=== PATIENT | male | born 1950 | race Caucasian/White ===

== ENCOUNTER 2017-08-25 06:48 | Day surgery (SDC) | payer MEDICARE ==
[~2017-08-25 06:48] MED LIST: Buffered Lidocaine 0.9% SYRIN* 5 ML/SYR SYRINGE INTRADERM ONE
[2017-08-25] MEDS ORDERED: Buffered Lidocaine 0.9% SYRIN* 5 ML/SYR SYRINGE ONE (07:03)
[2017-08-25] MEDS ORDERED: Lidocaine 1% MPF wEPI 200,000* 30 ML SDV ONE (08:05)
[2017-08-25] MEDS ORDERED: Succinylcholine* 20 MG/ML 10 ML VIAL ONE (08:12)
[2017-08-25] MEDS ORDERED: Dexamethasone IV* 4 MG/ML 1 ML (4 MG) ONE (08:12)
[2017-08-25] MEDS ORDERED: Lidocaine 2% PF * 5 ML VIAL ONE (08:12)
[2017-08-25] MEDS ORDERED: Propofol* 10 MG/ML 20 ML BTL IV PUSH ONE (08:12)
[2017-08-25] MEDS ORDERED: fentaNYL* 50 MCG/ML 2 ML VIAL (100 MCG VIAL) ONE ×2 (08:13→11:48)
[2017-08-25] MEDS ORDERED: Ondansetron INJ* 2 MG/ML VIAL IV PRN (10:06)
[2017-08-25] MEDS ORDERED: Ketorolac INJ* 30 MG/ML 1 ML VIAL IV PRN (10:06)
[2017-08-25] MEDS ORDERED: Bacitracin OINTMENT* 1 TUBE ONE (10:49)
[2017-08-25] MEDS ORDERED: Ketorolac INJ* 30 MG/ML 1 ML VIAL ONE (11:48)
[2017-08-25] MEDS ORDERED: Ondansetron INJ* 2 MG/ML VIAL ONE (11:52)
[2017-08-25] MEDS: fentaNYL* 50 MCG/ML 2 ML VIAL (100 MCG VIAL) IV PRN ×2 (11:55→12:25)
[2017-08-25] MEDS ORDERED: HYDROcodone/ACETAMIN 5-325 MG* 1 TAB ONE (12:21)
[2017-08-25 13:52] VITALS: BP 113/58
--- NOTE | 2017-08-26 01:06 | OP ---
OPERATIVE REPORT: DATE OF OPERATION: 08/25/17 - [facility] DATE OF : 48 SURGEON: Alvino Gaming MD FORENSIC ECONOMIST: Abrahan Snider MD ANESTHESIOLOGIST: Abelino Decker DO ANESTHESIA: General. PRE-OP DIAGNOSIS: Benign neoplasm, right parotid gland. POST-OP DIAGNOSIS: Benign neoplasm, right parotid gland. OPERATIVE PROCEDURE: Right superficial parotidectomy with facial nerve monitoring. ESTIMATED BLOOD LOSS: Approximately 40 cc. SPECIMENS: Right parotid mass to Pathology. INDICATIONS: This is a 67-year-old male who was referred for evaluation of right parotid mass. The mass appeared on imaging to be cystic. Fine needle aspiration demonstrated macrophages and proteinaceous debris without any obvious epithelial component, though no evidence of malignancy. Given the size of the mass, which is about 3 cm and associated discomfort, it was decided to proceed with right superficial parotidectomy, both for diagnostic and therapeutic purposes. DESCRIPTION OF PROCEDURE: On 08/25/17, the patient was brought to the operating room. General anesthesia was induced and an oral endotracheal tube was placed. The patient was positioned. A facial nerve monitor was applied and found to be in good working order. The intended infusion site was marked. A pre-prep verification was performed. 1% lidocaine with 1:200,00 epinephrine was infiltrated into the subcutaneous soft tissue at the intended incision site. The neck was then prepped with Betadine, draped sterilely and another time-out performed. A 15-blade was used to make an incision beginning in the preauricular crease extending inferiorly around the lobule and then down into the upper neck. A flap was raised anteriorly above the parotid fascia, but deep to the hair follicles, and skin was also raised posteriorly to expose the anterior portion of the sternocleidomastoid muscle. Dissection was then undertaken across the broad front running from the anterior edge of the external auditory canal cartilage inferiorly down towards the sternocleidomastoid muscle. The tympanomastoid suture line was used as a landmark to guide dissection down to an identification of the facial nerve. The main trunk was easily identified. This was then used as a landmark to guide further dissection. The mass itself was relatively superior in the gland and the facial nerve was dissected out distally towards the pes. The inferior branch did not need to be fully dissected because of the location of the mass, but all of the superior branches did need to be dissected in order to safely remove the mass. The mass appeared to be cystic, approximately 3 cm in size. It was removed carefully using a Guzman dissector bipolar forceps, 12-blade, and scissors. At one point, there was some bleeding from a vessel and that was just adjacent to the main trunk of the facial nerve. This ultimately was controlled with a medium-sized vascular clip without injury to the nerve. The remaining small bleeders were able to be controlled with bipolar. Once the specimen was removed, the wound was irrigated. The facial nerve was examined and was seen to be visually intact. A facial nerve stimulator was then used, which provided both nice response on the NIM's monitor, but also good motion of both the upper and lower divisions of the face seen clinically on the patient. A Valsalva was then performed, in fact, 2 Valsalvas were performed. There was no evidence of active bleeding. The wound was then closed. The dermis was closed with 4-0 Vicryl, anterior to the tragus 5-0 plain gut was used and the upper neck was closed with 5-0 nylon. A 1/4-inch Cromwell was trimmed and actually cut into half longitudinally and sutured into the inferior aspect of the wound to provide a route of egress for any blood or saliva that might accumulate over in the early postoperative period. Tegaderm and 2x2 was applied as well as bacitracin ointment. The patient was then returned to the care of the anesthesiologist, extubated without difficulty, and delivered to the PACU in stable condition. [id number]/[facility] #: [id number] NISHI
== END 2017-08-25 13:55 | disposition home or self-care (01) ==
LOC: OR 06:48
PROVIDERS: ATTEND Otolaryngology
DX: K11.6 Mucocele of salivary gland (principal); E78.5 Hyperlipidemia, unspecified; E03.9 Hypothyroidism, unspecified; I35.0 Nonrheumatic aortic (valve) stenosis; I34.0 Nonrheumatic mitral (valve) insufficiency
CPT/HCPCS: 88307; 88342; A9270-GY; J0330; J1100; J1885; J2001; J2405; J2704; J3010